=== PATIENT | female | born 1995 | race Caucasian/White ===

== ENCOUNTER 2017-01-12 11:57 | Emergency (ER) | payer BC, OTHER ==
[~2017-01-12] VITALS: Ht 165.1 cm; Wt 84.6 kg
[~2017-01-12 11:57] MED LIST: ZITHROMAX Z-PA250 MG PO; ZOFRAN ODT4 MG PO
[2017-01-12 12:42] LABS: ADD MIUA? YES; BILIRUBIN NEGATIVE; BLOOD MODERATE; COLOR YELLOW ((YELLOW)); GLUCOSE (STRIP) NEGATIVE; KETONES NEGATIVE; LEUKOCYTES LARGE; NITRITE NEGATIVE; PROTEIN (STRIP) 30; SPECIFIC GRAVITY 1.013 (1.000-1.030); UROBILINOGEN 0.2 MG/DL (0.2-1.0)
[2017-01-12 12:49] LABS: BACTERIA RARE /HPF; EPITHELIAL CELLS 2+ /HPF; HYALINE CASTS 0-5 /LPF; MUCUS TRACE /LPF; RED BLOOD CELLS 15-20 /HPF (0-5); UCUL ADDED? YES; WHITE BLOOD CELLS TNTC /HPF (0-5)
[2017-01-12] MEDS ORDERED: PROPRANOLOL HCL60 M1 PO (13:13)
[2017-01-12] MEDS ORDERED: NUVARING VAGIN1 EACH VG (13:13)
[2017-01-12] MEDS ORDERED: PYRIDIUM200 MG PO (13:44)
[2017-01-12] MEDS ORDERED: KEFLEX500 MG PO (13:44)
[2017-01-12 14:05] VITALS: BP 155/75
== END 2017-01-12 14:14 | disposition home or self-care (01) ==
LOC: EME 11:57
DX: N39.0 Urinary tract infection, site not specified (principal)
CPT/HCPCS: 81003; 87077; 87086; 87186; 99281; 99284

== ENCOUNTER 2017-01-30 12:10 | Emergency (ER) | payer BC, OTHER ==
[~2017-01-30] VITALS: Ht 165.1 cm; Wt 85.0 kg
[~2017-01-30 12:10] MED LIST changes: +KEFLEX500 MG PO; +NUVARING VAGIN1 EACH VG; +PROPRANOLOL HCL60 M1 PO; +PYRIDIUM200 MG PO
[2017-01-30 13:15] LABS: ADD MIUA? YES; BILIRUBIN NEGATIVE; BLOOD MODERATE; COLOR DK YELLOW ((YELLOW)); GLUCOSE (STRIP) NEGATIVE; KETONES NEGATIVE; LEUKOCYTES LARGE; NITRITE POSITIVE; PROTEIN (STRIP) 100; SPECIFIC GRAVITY 1.018 (1.000-1.030); UROBILINOGEN 0.2 MG/DL (0.2-1.0)
[2017-01-30 13:24] LABS: BACTERIA RARE /HPF; EPITHELIAL CELLS RARE /HPF; MUCUS 1+ /LPF; RED BLOOD CELLS 15-20 /HPF (0-5); UCUL ADDED? YES; WHITE BLOOD CELLS TNTC /HPF (0-5)
[2017-01-30] MEDS ORDERED: MACROBID100 MG PO (13:46)
[2017-01-30] MEDS ORDERED: PYRIDIUM100 MG PO (13:46)
[2017-01-30 14:16] VITALS: BP 142/79
== END 2017-01-30 14:17 | disposition home or self-care (01) ==
LOC: EME 12:10
PROVIDERS: Nurse Practitioner Family
DX: N39.0 Urinary tract infection, site not specified (principal); I10 Essential (primary) hypertension; F17.200 Nicotine dependence, unspecified, uncomplicated
CPT/HCPCS: 81003; 87086; 99281; 99284

== ENCOUNTER 2017-03-09 23:41 | Emergency (ER) | payer BC, OTHER ==
[~2017-03-09] VITALS: Ht 162.6 cm; Wt 83.9 kg
[~2017-03-09 23:41] MED LIST changes: +MACROBID100 MG PO; +PYRIDIUM100 MG PO
[2017-03-10 00:30] LABS: ADD MIUA? YES; BILIRUBIN NEGATIVE; BLOOD NEGATIVE; COLOR AMBER ((YELLOW)); GLUCOSE (STRIP) NEGATIVE; KETONES NEGATIVE; LEUKOCYTES MODERATE; NITRITE POSITIVE; PROTEIN (STRIP) 30; SPECIFIC GRAVITY 1.028 (1.000-1.030)
[2017-03-10 00:37] LABS: BACTERIA RARE /HPF; EPITHELIAL CELLS 1+ /HPF; HYALINE CASTS 0-5 /LPF; MUCUS 1+ /LPF; UCUL ADDED? NO; WHITE BLOOD CELLS 20-30 /HPF (0-5)
[2017-03-10] MEDS ORDERED: PYRIDIUM100 MG PO (00:45)
[2017-03-10] MEDS ORDERED: MACROBID100 MG PO (00:45)
[2017-03-10 00:56] VITALS: BP 123/81
== END 2017-03-10 00:56 | disposition home or self-care (01) ==
LOC: EME 23:41
DX: N39.0 Urinary tract infection, site not specified (principal); I10 Essential (primary) hypertension; Z87.440 Personal history of urinary (tract) infections; F17.200 Nicotine dependence, unspecified, uncomplicated
CPT/HCPCS: 81003; 87086; 99281; 99284

== ENCOUNTER 2017-03-31 22:08 | Emergency (ER) | payer BC, OTHER ==
[~2017-03-31] VITALS: Ht 165.1 cm; Wt 84.0 kg
[2017-03-31 22:48] LABS: ADD MIUA? YES; BILIRUBIN NEGATIVE; BLOOD LARGE; COLOR YELLOW ((YELLOW)); GLUCOSE (STRIP) NEGATIVE; KETONES NEGATIVE; LEUKOCYTES LARGE; NITRITE NEGATIVE; PROTEIN (STRIP) 100; SPECIFIC GRAVITY 1.025 (1.000-1.030); UROBILINOGEN 0.2 MG/DL (0.2-1.0)
[2017-03-31 22:55] LABS: BACTERIA 1+ /HPF; EPITHELIAL CELLS RARE /HPF; MUCUS TRACE /LPF; RED BLOOD CELLS TNTC /HPF (0-5); UCUL ADDED? YES; WHITE BLOOD CELLS TNTC /HPF (0-5)
[2017-03-31] MEDS ORDERED: KEFLEX500 MG PO (22:55)
[2017-03-31] MEDS ORDERED: PYRIDIUM100 MG PO (22:55)
[2017-03-31 23:02] VITALS: BP 143/91
== END 2017-03-31 23:03 | disposition home or self-care (01) ==
LOC: EME 22:08
PROVIDERS: Nurse Practitioner Family
DX: N30.00 Acute cystitis without hematuria (principal); I10 Essential (primary) hypertension; G43.909 Migraine, unspecified, not intractable, without status migrainosus; Z87.891 Personal history of nicotine dependence
CPT/HCPCS: 81003; 87077; 87086; 87186; 99281; 99283